=== PATIENT | female | born 1990 | race American Indian/Alaskan Native ===

== ENCOUNTER 2024-03-07 10:27 | Day surgery (SDC) | payer BC, OTHER ==
[2024-03-02 09:22] VITALS: BP 131/90
[~2024-03-07] VITALS: Ht 172.7 cm; Wt 111.4 kg
[~2024-03-07 10:27] MED LIST: CLARITIN10 M2 PO; IBLOOD GLUCOSE TEST STRIP 1 EA TEST VI PRN; LACTATED RINGER'S 1,000 ML IV SCH; LIDOCAINE HCL 1% 5 ML SDV INJ ONE; OMEPRAZOLE20 MG PO; ONDANSETRON ODT8 MG PO
[2024-03-07] MEDS ORDERED: COLLAGEN SKIN1 EACH PO (10:47)
[2024-03-07] MEDS ORDERED: WEGOVY2.4 MG/0.7 SUB-Q (10:47)
[2024-03-07 10:48] VITALS: BP 110/65
[2024-03-07] MEDS ORDERED: propofoL 200 MG/20 ML VIAL ONE (11:53)
[2024-03-07] MEDS ORDERED: LIDOCAINE HCL 2% 5 ML SDV ONE (11:53)
[2024-03-07] MEDS ORDERED: ondansetron HCL 4 MG/2 ML VIAL ONE (11:54)
[2024-03-07] MEDS ORDERED: fentaNYL citrate 100 MCG/2 ML VIAL ONE (11:54)
--- NOTE | 2024-03-07 13:01 | NUR ---
03/07/[address] PRESENTS TO PATIENT'S BEDSIDE AND IS SPEAKING WITH HER. HER QUESTIONS ARE ANSWERED.
[2024-03-07 13:31] VITALS: BP 129/96
--- NOTE | 2024-03-08 12:39 | OR ---
[facility] [address], [place] [address] Signed DATE OF OPERATION: 03/07/2024 SURGEON: Michelle Gómez MD PREOPERATIVE DIAGNOSES: 1. History of hematemesis (greater than 2 months ago). 2. History of diarrhea and blood per rectum; family history of colon cancer, paternal side. POSTOPERATIVE DIAGNOSES: 1. Severe ulcerative distal esophagitis with small hiatal hernia. 2. Normal-appearing colon. PROCEDURES: 1. Esophagogastroduodenoscopy with biopsy. 2. Total colonoscopy to cecum with biopsy of rectum. ANESTHESIA: Intravenous sedation, propofol infusion; monico Bonilla CRNA INDICATIONS FOR THE PROCEDURE: This 33-year-old white woman is a patient of CORY Uribe from [facility]. Two months ago, she had hematemesis, thereafter diarrhea with blood per rectum. The patient has had a significant history of obesity in the past, but it is now treated with Wegovy with a benefit to reflux symptoms and diarrhea, which is somewhat counterintuitive. In any case, upper endoscopy and colonoscopy have been recommended, and in particular due to family history of colon cancer on her father side. The risk of bleeding, infection, and perforation related to upper endoscopy and colonoscopy were reviewed with her, she understands and wished to proceed. FINDINGS: Upper endoscopy confirmed distal ulcerative esophagitis as well as poor flap valve consistent with small hiatal hernia. The stomach and duodenum were normal. CLOtest was negative. On colonoscopy, the prep was excellent. Complete colonoscopy was undertaken of the cecum with full intubation of the cecum. There were no abnormalities of the colon or rectum. Biopsies were taken of the rectum to assess for occult colitis. DESCRIPTION OF PROCEDURE: Electronically Signed By: MICHELLE GÓMEZ MD 03/08/24 1239 PATIENT NAME: PUSHPA MAC OPERATIVE REPORT DATE OF : [birth year] REPORT #: [id number] PHYSICIAN: MICHELLE GÓMEZ MD PCP: FREDO LI PAC REPORT IS CONFIDENTIAL AND NOT TO BE RELEASED WITHOUT AUTHORIZATION [facility] [address], [place] [address] Signed The patient was brought to the endoscopy suite and placed in the lateral decubitus position given intravenous sedation with propofol infusional technique by the deposit clerk. Bite block was placed. An Olympus video upper endoscope was passed in the hypopharynx. The vocal cords were normal. Scope was advanced to the esophagus without problem. In the distal portion, with severe ulcerative esophagitis, but no stricture and no neoplasm. Scope was passed to the stomach, which was insufflated with air. Rugal folds were normal. There was no sign of bile reflux. The pylorus was normal. Scope was passed through into the duodenum, which was normal. Biopsies were taken of the duodenum to assess for celiac disease. The scope was withdrawn. Biopsies taken of the antrum for ERAN and pathologic testing. Retroflexed view confirmed a poor flap valve consistent with small hiatal hernia. The scope was withdrawn. Biopsies taken of the distal esophagus. Middle esophagus biopsies were taken as well. Scope was withdrawn and removed. Plans were made for colonoscopy. Digital rectal was normal. An Olympus colonoscope was passed into the rectum and manipulated throughout the colon ultimately fully intubating the cecum. The ileocecal valve and appendiceal orifice were normal. Scope was withdrawn from that point and examination throughout showed no sign of abnormality, specifically no polyps, diverticular formation, colitis, or cancer. Retroflexed view of the rectum was normal. A biopsy was taken of the rectum to assess for occult colitis. Quite notably, there was no evidence of hemorrhoidal disease. The scope was removed. The patient was taken to the recovery room in good condition. CONCLUDING DIAGNOSIS: 1. Severe distal ulcerative esophagitis with hiatal hernia (small). 2. Normal-appearing colon. PLAN: 1. We will recommend she continue with PPI medication as planned; she was on Protonix before and that would be fine or omeprazole or other PPI medicines. 2. Follow up on planned CCK-HIDA test; ultrasound has been negative, but she does have symptoms suggestive of biliary disease. 3. Repeat colonoscopy in 5 years based on family history issues. She will see us back in the office in 2-4 weeks following CCK-HIDA test to better outline a plan going forward. Michelle Gómez MD Electronically Signed By: MICHELLE GÓMEZ MD 03/08/24 1239 PATIENT NAME: PUSHPA MAC OPERATIVE REPORT DATE OF : [birth year] REPORT #: [id number] PHYSICIAN: MIHCELLE GÓMEZ MD PCP: FREDO LI PAC REPORT IS CONFIDENTIAL AND NOT TO BE RELEASED WITHOUT AUTHORIZATION [address] [address] Signed PAULIE/RAMONA /[id number] cc: CORY Uribe [facility] Copies: ~ Electronically Signed By: MICHELLE GÓMEZ MD 03/08/24 1239 PATIENT NAME: PUSHPA MAC OPERATIVE REPORT DATE OF : [birth year] REPORT #: [id number] PHYSICIAN: MICHELLE GÓMEZ MD PCP: FREDO LI PAC REPORT IS CONFIDENTIAL AND NOT TO BE RELEASED WITHOUT AUTHORIZATION
--- NOTE | 2024-03-08 14:36 | PATH ---
[facility] [address], [place] [address] Signed SPECIMEN(S): A DUODENAL BIOPSY SPECIMEN(S): B ANTRUM BIOPSY SPECIMEN(S): C LOWER ESOPHAGEAL BIOPSY SPECIMEN(S): D MIDDLE ESOPHAGEAL BIOPSY SPECIMEN(S): E RECTUM BIOPSY SPECIMEN SOURCE: A. DUODENAL BIOPSY B. ANTRUM BIOPSY C. LOWER ESOPHAGEAL BIOPSY D. MIDDLE ESOPHAGEAL BIOPSY E. RECTUM BIOPSY CLINICAL HISTORY: Hematemesis, rectal bleeding, GERD, family history of colon cancer, abdominal pain, severe ulcerative esophagitis, small hiatal hernia FINAL PATHOLOGIC DIAGNOSIS: A. Duodenum, biopsy: - Duodenal mucosa with no significant pathologic changes B. Stomach, antrum, biopsy: - Gastric antral mucosa with no significant pathologic changes - Negative for Helicobacter pylori with HE stains C. Esophagus, lower, biopsy: - Esophageal squamous mucosa with no significant pathologic changes D. Esophagus, middle, biopsy: - Esophageal squamous mucosa with no significant pathologic changes E. Rectum, biopsy: - Colonic mucosa with no significant pathologic changes BRP MICROSCOPIC EXAMINATION: Histologic sections of all submitted blocks are examined by light microscopy. These findings, together with the gross examination, support the pathologic diagnosis. GROSS DESCRIPTION: A. The specimen, labeled and designated "Cely duodenal biopsy," is received in formalin and consists of two seay soft tissue fragments, ranging from 0.3-0.7 cm. Entirely submitted in (A1). B. The specimen, labeled and designated "Cely, antrum biopsy," is received in PATIENT NAME: PUSHPA MAC [facility] PATHOLOGY DATE OF : [birth year] REPORT #: [id number] PHYSICIAN: JADE PICKARD PCP: FREDO LI PAC REPORT IS CONFIDENTIAL AND NOT TO BE RELEASED WITHOUT AUTHORIZATION [facility] [address], [place] [address] Signed formalin and consists of two seay soft tissue fragments, ranging from 0.2-0.3 cm. Entirely submitted in (B1). C. The specimen, labeled and designated "Cely, lower esophageal biopsy," is received in formalin and consists of five seay soft tissue fragments, ranging from 0.3-0.5 cm. Entirely submitted in (C1). D. The specimen, labeled and designated "Cely, middle esophageal biopsy," is received in formalin and consists of three seay soft tissue fragments, ranging from 0.1-0.3 cm. Entirely submitted in (D1). E. The specimen, labeled and designated "Cely, rectum biopsy," is received in formalin and consists of two seay soft tissue fragments, ranging from 0.2-0.4 cm. Entirely submitted in (E1). VB (under the direct supervision of a pathologist) The Gross Description was prepared using a voice recognition system. The report was reviewed for accuracy; however, sound-alike word errors, addition and/or deletions may occur. If there is any question about this report, please contact Client Services. ADDITIONAL NOTES: Immunohistochemical and/or in situ hybridization studies if performed in this case included appropriate positive controls that reacted as expected. This test was developed and its performance characteristics determined by [facility]. It has not been cleared or approved by the U.S. Food and Drug Administration. The FDA has determined that such clearance or approval is not necessary. This test is used for clinical purposes. It should not be regarded as investigational or for research. [facility] is certified under the Clinical Laboratory Improvement Amendments of 1988 (CLIA) as qualified to perform high complexity clinical laboratory testing. PERFORMING LABORATORY: Technical component was performed by [facility], [address] [place] [id number] (CLIA# [id number]). Professional interpretation was performed by [facility], [address] [place] [id number] (CLIA#: [id number]). Diagnostician: Vel Zamudio MD Pathologist Electronically Signed 03/08/2024 PATIENT NAME: PUSHPA MAC PATHOLOGY DATE OF : [birth year] REPORT #: [id number] PHYSICIAN: [facility] PCP: FREDO LI PAC REPORT IS CONFIDENTIAL AND NOT TO BE RELEASED WITHOUT AUTHORIZATION [facility] [address] [place] [address] Bartolo Chun [address] Signed Copies: ~ PATIENT NAME: CELYPUSHAP MARSH PATHOLOGY DATE OF : [birth year] REPORT #: [id number] PHYSICIAN: JADE PICKARD PCP: FREDO LI PAC REPORT IS CONFIDENTIAL AND NOT TO BE RELEASED WITHOUT AUTHORIZATION
== END 2024-03-07 13:38 | disposition home or self-care (01) ==
LOC: DS 10:27
PROVIDERS: ATTEND Surgery
PROC: 0DBP8ZX Excision of Rectum, Via Natural or Artificial Opening Endoscopic, Diagnostic (ICD-10-PCS; 2024-03-07)
PROC: 0DB98ZX Excision of Duodenum, Via Natural or Artificial Opening Endoscopic, Diagnostic (ICD-10-PCS; principal; 2024-03-07 11:00)
PROC: 0DB68ZX Excision of Stomach, Via Natural or Artificial Opening Endoscopic, Diagnostic (ICD-10-PCS; 2024-03-07 11:00)
DX: K62.5 Hemorrhage of anus and rectum (principal); K22.10 Ulcer of esophagus without bleeding; K44.9 Diaphragmatic hernia without obstruction or gangrene; K21.00 Gastro-esophageal reflux disease with esophagitis, without bleeding; Z88.5 Allergy status to narcotic agent; Z79.899 Other long term (current) drug therapy; Z87.19 Personal history of other diseases of the digestive system; Z80.0 Family history of malignant neoplasm of digestive organs; Z83.79 Family history of other diseases of the digestive system
CPT/HCPCS: 00813; J2003; J2405; J2704; J3010; J7121

== ENCOUNTER 2024-05-18 07:43 | Day surgery (SDC) | payer BC, OTHER ==
[2024-05-04 08:54] VITALS: BP 132/87
[~2024-05-18] VITALS: Ht 172.7 cm; Wt 100.0 kg
[~2024-05-18 07:43] MED LIST changes: +CEFAZOLIN SODIUM 2 GM/20 ML SYR IV SCH; +COLLAGEN SKIN1 EACH PO; +FLUCONAZOLE150 MG PO; +HEParin SOD (PORCINE) 5,000 UNIT/ML SDV SUB-Q SCH; +PANTOPRAZOLE SO20 MG PO; +VENTOLIN HFA18 GM INH; +WEGOVY2.4 MG/0.7 SUB-Q
[2024-05-18 08:04] VITALS: BP 123/68
[2024-05-18] MEDS ORDERED: LIDOCAINE HCL 2% 5 ML SDV ONE (08:09)
[2024-05-18] MEDS ORDERED: SUGAMMADEX SODIUM 200 MG/2 ML ML ONE (08:09)
[2024-05-18] MEDS ORDERED: DEXAMETHASONE SOD PHOS 4 MG/ML VIAL ONE (08:09)
[2024-05-18] MEDS ORDERED: propofoL 200 MG/20 ML VIAL ONE (08:09)
[2024-05-18] MEDS ORDERED: ROCURONIUM BROMIDE 50 MG/5 ML SYR ONE (08:09)
[2024-05-18] MEDS ORDERED: MIDAZOLAM HCL 2 MG/2 ML VIAL ONE (08:09)
[2024-05-18] MEDS ORDERED: KETOROLAC TROMETHAMINE 30 MG/ML VIAL ONE (08:09)
[2024-05-18] MEDS ORDERED: ondansetron HCL 4 MG/2 ML VIAL ONE (08:09)
[2024-05-18] MEDS ORDERED: fentaNYL citrate 100 MCG/2 ML VIAL ONE (08:10)
[2024-05-18] MEDS ORDERED: MULTIVITAMIN1 EACH PO (08:17)
[2024-05-18] MEDS ORDERED: fentaNYL citrate 50 MCG/ML SDV IV PRN (09:15)
[2024-05-18] MEDS ORDERED: IBLOOD GLUCOSE TEST STRIP 1 EA TEST VI PRN (09:15)
[2024-05-18] MEDS ORDERED: ondansetron HCL 4 MG/2 ML VIAL IV PRN ×2 (09:15→11:30)
[2024-05-18] MEDS ORDERED: MIDAZOLAM HCL 2 MG/2 ML VIAL IV PRN (09:15)
[2024-05-18] MEDS ORDERED: NALOXONE HCL 0.4 MG SYR IV PRN ×2 (09:15→11:30)
[2024-05-18] MEDS ORDERED: SODIUM CHLORIDE 0.9% 60 ML IV ONE (09:34)
[2024-05-18] MEDS ORDERED: iopamidoL 30 ML VIAL ONE (09:34)
[2024-05-18] MEDS ORDERED: ACETAMINOPHEN 1,000 MG/100 ML VIAL ONE (10:11)
[2024-05-18] MEDS ORDERED: dexmedeTOMIDine HCl 200 MCG/2 ML VIAL ONE (10:13)
[2024-05-18] MEDS ORDERED: LACTATED RINGER'S 1,000 ML IV ONE (10:24)
[2024-05-18] MEDS ORDERED: MORPHINE SULFATE 10 MG/ML VIAL ONE (10:35)
--- NOTE | 2024-05-18 11:22 | NUR ---
05/18/24 1122 Elmer,Genevieve 1111 PT ARRIVED TO PACU ON 6L VIA MASK, PT REACTIVE TO TACTILE STIMULI
[2024-05-18] MEDS ORDERED: ACETAMINOPHEN 500 MG TAB PO PRN (11:30)
[2024-05-18] MEDS ORDERED: LACTATED RINGER'S 1,000 ML IV SCH (11:30)
[2024-05-18] MEDS ORDERED: OXYCODONE/APAP 7.5/325 TAB PO PRN (11:30)
[2024-05-18] MEDS ORDERED: ACETAMINOPHEN500 MG PO (11:34)
[2024-05-18] MEDS ORDERED: OXYCODON-ACETA1 EAC2 PO (11:34)
[2024-05-18] MEDS ORDERED: MOTRIN IB200 MG PO (11:35)
[2024-05-18 11:50] VITALS: BP 110/64
[2024-05-18] MEDS ORDERED: droPERidol 5 MG/2 ML VIAL IV ONE (12:30)
[2024-05-18 12:50] VITALS: BP 121/68
[2024-05-18] MEDS ORDERED: SEVOFLURANE 250 ML BTL INH ONE (13:16)
--- NOTE | 2024-05-18 13:52 | NUR ---
EVERETT 1348: PT IS ASSISTED UP OOB WITH STAND BY ASSIST. SHE AMBULATES TO THE BATHROOM, WHERE SHE VOIDS 600MLS OF DARK URINE. EVERETT 1352: PT AMBUALTES BACK TO HER ROOM. SHE IS TOLERATING WATER AND APPLE SAUCE. SHE IS INDICATES THAT SHE WOULD LIKE TO GO HOME. SHE IS EDUCATED ON HOW TO BEST DRESS HERSELF AND TO OPEN HER CURTAIN WHEN READY.
[2024-05-18 13:59] VITALS: BP 93/75
--- NOTE | 2024-05-18 14:18 | NUR ---
LE 1400: PT IS GIVEN WRITTEN AND VERBAL DC INSTRUCTIONS, WITH MOM AND FRIEND PRESENT. THEY ALL VERBALIZE UNDERSTANDING. QUESTIONS ARE ASKED AND ANSWERED. LE 1409: PT IS TAKEN TO PERSONAL VEHICLE VIA WC. SHE IS ABLE TO TRANSFER HERSELF WITHOUT ISSUES.
--- NOTE | 2024-05-18 14:19 | NUR ---
LE- 1150-PT ARRIVED BACK TO ON RA, AAOX3, ANSWERING QUESTIONS APPROPRAITELY, AND ABLE TO MAKE HER NEEDS KNOWN. PTS MOTHER AND FRIEND IN ROOM UPON HER RETURN. REPORT RECEIVED FROM PATIENT RESOURCE SPECIALIST. SURGICAL SITES TO ABD VISUALIZED WITH PATIENT RESOURCE SPECIALIST. PT WITH LAP SITES X4. UMBILICAL SITE NOTED TO BE REINFORCED WITH 2X2 GUAZE UPON ARRIVAL BACK TO . MODERATE AMTS OF SANGUINEOUS DRAINAGE PRESENT ON UMBILICAL LAP SITE ONLY. DOES NOT APPEAR TO BE ACTIVELY BLEEDING AT THIS TIME. REST OF LAP SITE DRSGS REMAIN CDI. VS TAKEN. IV SITE ASSESSED, PATENT AND INFUSING LR PER ORDERS. PT W/HOB SLIGHTLY ELEVATED AT 10 DEGREES. COLD WASH CLOTH OVER EYES, AND PT REPORTS TRYING TO HOLD VERY STILL. PT REPORTS VERTIGO, NAUSEA, AND PHOTOPHOBIA. PT ALSO REPORTING PAIN IN ABD AT 6/10. PT REQUESTING PAIN MEDS AND FEELS SHE CAN SWALLOW THEM. ALL QUESTIONS ANSWERED. BED IN LOW POSITION, WHEELS LOCKED. CALL LIGHT WITHIN PT REACH. 1200-PT PROVIDED WITH PILLOW AND EDUCATED ON HOLDING IT TO ABD WITH DEEP BREATHING, COUGHING, AND POSITION CHANGES. PT VERBALIZED AND DEMONSTRATED UNDERSTANDING. 1211-PO PAIN MEDS GIVEN WITH A COUPLE SMALL SIPS OF WATER. PT ABLE TO ALLOW SLOW ELEVATION OF HOB TO APPROX 30 DEGREES TO TAKE MEDS AND THEN REQUESTED TO LAY BACK DOWN TO 10 DEGREES ELEVATION D/T ABD DISCOMFORT. PT ALSO PROVIDED FRESH ICE WATER AND SALTINE CRACKERS AT BEDSIDE. 1217-PT CONTINUES TO REPORT WORSENING VERTIGO AND PHOTOPHOBIA THUS WORSENING HER REPORTS OF NAUSEA. SPOKE WITH UMESH STEIN VIA PHONE AND RECEIVED VERBAL ORDERS TO GIVE 0.625 MG INAPSINE IV ONE TIME. NOTED ORDER IN Lift. PT PROVIDED WITH ADDITIONAL WARM BLANKETS FOR COMFORT WELL. COLD CLOTH FOR FOREHEAD RE-MOISTENED. LIGHTS TURNED OFF FOR PATIENTS COMFORT WELL. CALL LIGHT WITHIN PT REACH AND BED IN LOW POSITION, WHEELS LOCKED, BILAT RAILS IN PLACE. PTS MOTHER REMAINS AT BEDSIDE. 1243-INTO PTS ROOM TO ADMINISTER INAPSINE ONCE ABLE TO PULL MED FROM PYXIS. PT REPORTING URGE TO VOMMITT. PROVIDED WITH EMESIS BAG. PT DID NOT END UP VOMITTING. EMESIS BAG LEFT WITHIN PT REACH. 1246-IV INAPSINE GIVEN PER EMAR. PT ALSO GIVEN ALCOHOL SWAB TO SMELL TO HELP WITH NAUSEA. 1250-ROUTINE REASSESSMENT COMPLETED. VS TAKEN. IV SITE ASSESSED. SURGICAL SITES VISUALIZED. NO ACUTE CHANGES NOTED FROM INITITAL ASSESSMENT. NO INCREASED DRAINAGE IS SEEN AT UMBILICAL SITE. PT REPORTS SOME IMPROVEMENT IN HER PAIN AND IS NOW RATING AT 4/10. SHE REPORTS THIS TO BE TOLERABLE FOR HER AT THIS TIME. PT REMAINS LAYING FLAT WITH SLIGHT HOB ELEVATION AT APPROX 10 DEGREES. LIGHTS REMAIN OFF D/T PHOTOPHOBIA. COOL WASHCLOTH REMAINS OVER PTS EYES. ADDITIONAL WARM BLANKETS PROVIDED. PTS MOTHER REMAINS IN ROOM WITH PT AT BEDSIDE. CALL LIGHT WITHIN PT REACH. BED IN LOW POSITON, WHEELS LOCKED, BILAT RAILS IN PLACE FOR SAFETY. ALL QUESTIONS ANSWERED.
--- NOTE | 2024-05-19 11:24 | OR ---
[facility] [address] [place], [place] [address] Signed DATE OF OPERATION: 05/18/2024 SURGEON: Michelle Gómez MD PREOPERATIVE DIAGNOSES: 1. Chronic acalculous cholecystitis. 2. Obesity. POSTOPERATIVE DIAGNOSES: 1. Chronic acalculous cholecystitis. 2. Obesity. 3. Profound cholesterolosis. PROCEDURES: 1. Laparoscopic cholecystectomy with intraoperative cholangiogram. 2. Surgeon-directed fluoroscopy. ANESTHESIA: General endotracheal; Mary Elliotterson MEDICAL AND SCIENTIFIC ILLUSTRATOR and local 10 mL of 0.25% Marcaine with epinephrine. INDICATION: This 34-year-old morbidly obese white woman is a patient of CORY Uribe at [facility]. She has had classic biliary colic symptoms, but testing shows no evidence of gallstones on gallbladder ultrasound and CCK HIDA test was performed showing an ejection fraction of 77% (normal). She did have "heartburn" symptoms after injection of CCK. She does note that omeprazole does help her with actual reflux symptoms, which is not too surprising considering she does have significant obesity. Upper endoscopy and colonoscopy have shown no findings of concern to account for her symptoms which clinically are completely consistent with biliary colic. On that basis, I have offered and she accepts the laparoscopic cholecystectomy with cholangiogram as the remedy to probable chronic acalculous cholecystitis. She and her family understand the risk of bleeding, infection, bile duct injury, need for open procedure and most importantly failure to cure her symptoms. Understanding that she wished to proceed. FINDINGS: She had a fatty liver as might be expected, but no cirrhotic changes or inflammatory changes. The gallbladder itself was chronically inflamed. Once opened, the gallbladder was noted to have profound cholesterolosis (strawberry gallbladder). Cholangiogram was normal. Electronically Signed By: MICHELLE GÓMEZ MD 05/19/24 1124 PATIENT NAME: PUSHPA MAC OPERATIVE REPORT DATE OF : [birth year] REPORT #: [id number] PHYSICIAN: MICHELLE GÓMEZ MD PCP: NATALIE LI PAC REPORT IS CONFIDENTIAL AND NOT TO BE RELEASED WITHOUT AUTHORIZATION [facility] [address] [place], [place] [address] Signed DESCRIPTION OF PROCEDURE: The patient was brought to the operating room, given a general endotracheal anesthetic. Preoperative antibiotic Ancef was given. Sequential compression device stockings used and heparin subcutaneously administered. The abdomen was prepared with a chlorhexidine solution and draped sterilely. An infraumbilical incision was made and using an open Natalio cannula technique, the abdomen was entered and pneumoperitoneum achieved to a level of 14 mmHg of carbon dioxide gas. Intra-abdominal inspection showed no sign of ascites or carcinomatosis. The liver was fatty and had impressions of the overlying ribs on its surface. Gallbladder itself was chronically inflamed, had a few omental adhesions to it. Three additional trocars were placed in usual configuration in the subxiphoid, right midclavicular, and right anterior axillary line. The gallbladder was elevated cephalad and retracted laterally and using blunt electrocautery dissection the triangle of Calot was dissected free. A dominant cystic artery was doubly clipped and divided and a clip was applied across gallbladder cystic duct junction. A choledochotomy was made in the cystic duct and egress of clear bile was noted. Using the Involver type cholangiocatheter system, intraoperative cholangiography was undertaken showing free flow of contrast in the biliary tree with prompt emptying into the duodenum. Notably, an air bubble was initially injected, but was cleared as would be expected. The catheter was removed and the cystic duct was triply clipped and divided. The gallbladder was dissected free in a retrograde fashion using electrocautery. Gallbladder was opened on the back table confirming profound cholesterolosis. Subhepatic space was examined showing no sign of bile leak, bleeding or other problems. Excess irrigation fluid was suctioned free. The trocars removed under direct visualization showing no sign of bleeding. The infraumbilical fascial incision was reapproximated with interrupted 0 Vicryl suture. 10 mL of 0.25% Marcaine with epinephrine was injected locally. The skin was then closed with interrupted 3-0 Vicryl. Steri-Strips were applied. The patient was ultimately extubated and transferred to the recovery room in good condition having suffered no complication. Sponge, needle, and instrument counts were correct x3. Michelle Gómez MD /MODL /[id number] Electronically Signed By: MICHELLE GÓMEZ MD 05/19/24 1124 PATIENT NAME: PUSHPA MAC OPERATIVE REPORT DATE OF : [birth year] REPORT #: [id number] PHYSICIAN: MICHELLE GÓMEZ MD PCP: NATALIE LI PAC REPORT IS CONFIDENTIAL AND NOT TO BE RELEASED WITHOUT AUTHORIZATION [address] [address] Signed cc: Natalie Li [facility] Copies: ~ Electronically Signed By: MICHELLE GÓMEZ MD 05/19/24 1124 PATIENT NAME: MADELYN MACPati MARSH OPERATIVE REPORT DATE OF : [birth year] REPORT #: [id number] PHYSICIAN: MICHELLE GÓMEZ MD PCP: NATALIE LI PAC REPORT IS CONFIDENTIAL AND NOT TO BE RELEASED WITHOUT AUTHORIZATION
== END 2024-05-18 14:09 | disposition home or self-care (01) ==
LOC: DS 07:43
PROVIDERS: ATTEND Surgery
PROC: 0FT44ZZ Resection of Gallbladder, Percutaneous Endoscopic Approach (ICD-10-PCS; principal; 2024-05-18 09:30)
DX: K81.1 Chronic cholecystitis (principal); E66.01 Morbid (severe) obesity due to excess calories; K76.0 Fatty (change of) liver, not elsewhere classified; Z88.5 Allergy status to narcotic agent; Z79.899 Other long term (current) drug therapy
CPT/HCPCS: 00790; 74300; J0131; J0690; J1100; J1644; J1790; J1885; J2003; J2250; J2270; J2405; J2704; J3010; J3490; J7121; Q9967